=== PATIENT | female | born 1950 | race Hispanic/Latino ===

== ENCOUNTER 2018-01-22 14:30 | Inpatient (IN) | payer OTHER ==
[~2018-01-22] VITALS: Ht 149.9 cm; Wt 95.5 kg
[2018-01-22 14:43] VITALS: BP 127/70
[2018-01-22 15:00] LABS: APPEARANCE,URINE Clear (CLEAR); BILIRUBIN,URINE Negative (NEGATIVE); COLOR,URINE Yellow (YELLOW); GLUCOSE, URINE (UA) Negative (NEGATIVE); KETONES,URINE Negative (NEGATIVE); LEUKOCYTE ESTERASE ,URINE Small (NEGATIVE); NITRATE,URINE Negative (NEGATIVE); OCCULT BLOOD,URINE Negative (NEGATIVE); PROTEIN,URINE Negative (NEGATIVE)
[2018-01-22 15:10] LABS: RBC,URINE None Seen /HPF (0-1)
[2018-01-22 15:11] LABS: BACTERIA,URINE Few /HPF (None Seen)
[2018-01-22] MEDS ORDERED: DICLOFENAC PO (15:23)
[2018-01-22] MEDS: CEFAZOLIN SODIUM 1 GM VIAL IVP SCH (16:15)
[2018-01-23] MEDS: CEFAZOLIN SODIUM 1 GM VIAL IVP SCH (16:15)
[2018-01-24] MEDS: CEFAZOLIN SODIUM 1 GM VIAL IVP SCH (16:15)
[2018-01-25] VITALS (19 sets, daily range): BP systolic 114–151; BP diastolic 54–89
[2018-01-25] MEDS ORDERED: GENTAMICIN SULFATE 240 MG in SODIUM CHLORIDE 0.9% 100 ML IV ONE (09:30)
[2018-01-25] MEDS ORDERED: LACTATED RINGERS 1000ML 1,000 ML IV ONE (09:37)
[2018-01-25] MEDS ORDERED: ACETAMINOPHEN EXTRA STRENGTH 500 MG TABLET ONE (11:23)
[2018-01-25] MEDS ORDERED: METOCLOPRAMIDE 10 MG/2 ML VIAL ONE ×2 (11:23→15:42)
[2018-01-25] MEDS ORDERED: CELECOXIB 200 MG CAP ONE (11:23)
[2018-01-25] MEDS ORDERED: KETOROLAC TROMETHAMINE 15MG/ML ONE (11:23)
[2018-01-25] MEDS ORDERED: OXYCODONE HCL 10 MG TAB.SR.12H PO ONE (11:24)
[2018-01-25] MEDS ORDERED: CEFAZOLIN SODIUM 1 GM VIAL ONE (11:30)
[2018-01-25] MEDS ORDERED: BUPIVACAINE/PF 0.25% 30ML VIAL IJ ONE (11:31)
[2018-01-25] MEDS ORDERED: TRANEXAMIC ACID 1000MG/10ML IV ONE (11:31)
[2018-01-25] MEDS ORDERED: EPINEPHRINE 1 MG/ML AMPULE ONE (11:31)
[2018-01-25] MEDS ORDERED: SCOPOLAMINE HYDROBROMIDE 1 EACH ADH..PATCH TD ONE (12:49)
[2018-01-25] MEDS ORDERED: HYDROMORPHONE HCL 0.5 MG/0.5 ML ML ONE (12:55)
[2018-01-25] MEDS ORDERED: ROCURONIUM BROMIDE 10MG/1ML 5ML VL ONE ×2 (12:57→13:17)
[2018-01-25] MEDS ORDERED: PROPOFOL 10 MG/ML 20ML VIAL IV ONE (12:57)
[2018-01-25] MEDS ORDERED: LIDOCAINE PF 2% 5ML ABBOJECT ONE (12:57)
[2018-01-25] MEDS ORDERED: MIDAZOLAM HCL 1 MG/ML 2ML VIAL ONE (12:59)
[2018-01-25] MEDS ORDERED: ONDANSETRON HCL 4 MG/2 ML VIAL ONE (13:35)
[2018-01-25] MEDS: CEFAZOLIN SODIUM 1 GM VIAL IVP SCH (13:38)
[2018-01-25] MEDS ORDERED: CEFAZOLIN SODIUM 1 GM VIAL IRRIG ONE (14:09)
[2018-01-25] MEDS: SODIUM CHLORIDE 0.9% 1000ML 1,000 ML IV SCH ×2 (15:17→20:18)
[2018-01-25] MEDS: ACETAMINOPHEN EXTRA STRENGTH 500 MG TABLET PO SCH ×2 (15:30→23:18)
[2018-01-25] MEDS ORDERED: ONDANSETRON HCL 4 MG/2 ML VIAL IVP PRN (15:30)
[2018-01-25] MEDS ORDERED: DiphenhydrAMINE HCL 50 MG/ML VIAL IVP PRN (15:30)
[2018-01-25] MEDS ORDERED: POTASSIUM CHLORIDE 20MEQ/100ML 100 ML IV PRN (15:30)
[2018-01-25] MEDS ORDERED: FERROUS FUMARATE 324 MG TABLET PO PRN (15:30)
[2018-01-25] MEDS ORDERED: CALCIUM CARBONATE 500 MG TABLET PO PRN (15:30)
[2018-01-25] MEDS ORDERED: POTASSIUM CHLORIDE 20 MEQ ERTAB PO PRN (15:30)
[2018-01-25] MEDS ORDERED: POTASSIUM CHLORIDE 10% ELIXIR 20 MEQ/15 ML UDCUP PO PRN (15:30)
[2018-01-25] MEDS ORDERED: LIDOCAINE HCL-MPF 1% 2ML VIAL IVP PRN (15:30)
[2018-01-25] MEDS ORDERED: TEMAZEPAM 15 MG CAPSULE PO PRN (15:30)
[2018-01-25] MEDS ORDERED: GLYCOPYRROLATE 1 MG/5 ML SYRINGE ONE (15:42)
[2018-01-25] MEDS ORDERED: NEOSTIGMINE 5MG/5ML SYR IV ONE (15:42)
[2018-01-25] MEDS ORDERED: MEPERIDINE-PF 25 MG/ML SYG ONE ×2 (16:09→16:25)
[2018-01-25] MEDS: KETOROLAC TROMETHAMINE 15MG/ML IV PRN ×2 (17:44→23:42)
[2018-01-25] MEDS: ASPIRIN 325 MG TABLET PO SCH (20:17)
[2018-01-25] MEDS: PREGABALIN 25 MG CAP PO SCH (20:17)
[2018-01-25] MEDS: CEFAZOLIN 3GM /D5W 100ML 100 ML IV SCH (20:18)
[2018-01-25] MEDS: FAMOTIDINE 20MG TAB 20 MG TAB PO SCH (20:18)
[2018-01-26 00:06] VITALS: BP 122/68
[2018-01-26] MEDS: CEFAZOLIN 3GM /D5W 100ML 100 ML IV SCH (03:45)
[2018-01-26 04:03] VITALS: BP 137/66
[2018-01-26 05:00] LABS: HEMATOCRIT 37.4 % (36-48); MEAN CORPUSCULAR HEMOGLOBIN 32.7 pg (27.0-33.0); PLATELET COUNT (AUTO) 160 K/uL (130-400); RED BLOOD CELL COUNT(AUTO) 3.89 MIL/uL (4.00-5.50); RED CELL DISTRIBUTION WIDTH 12.9 % (11.0-15.5)
[2018-01-26] MEDS: KETOROLAC TROMETHAMINE 15MG/ML IV PRN ×2 (05:09→12:14)
[2018-01-26 05:17] LABS: CREATININE 0.9 mg/dL (0.5-1.5); POTASSIUM 3.9 mmol/L (3.5-5.1)
[2018-01-26 08:02] VITALS: BP 127/64
[2018-01-26] MEDS: ACETAMINOPHEN EXTRA STRENGTH 500 MG TABLET PO SCH ×3 (08:53→23:15)
[2018-01-26] MEDS: PREGABALIN 25 MG CAP PO SCH ×2 (08:54→19:55)
[2018-01-26] MEDS: ASPIRIN 325 MG TABLET PO SCH ×2 (08:54→19:55)
[2018-01-26] MEDS: FAMOTIDINE 20MG TAB 20 MG TAB PO SCH ×2 (08:54→19:55)
[2018-01-26] MEDS: TRAMADOL HCL 50 MG TABLET PO PRN ×2 (08:56→15:33)
[2018-01-26] MEDS: POLYETHYLENE GLYCOL 3350 17 GM POWD.PACK PO SCH (09:26)
[2018-01-26] MEDS: SODIUM CHLORIDE 0.9% 1000ML 1,000 ML IV SCH (11:17)
[2018-01-26 12:23] VITALS: BP 113/56
[2018-01-26 16:42] VITALS: BP 114/54
[2018-01-26 20:05] VITALS: BP 112/60
[2018-01-27] VITALS (7 sets, daily range): BP systolic 107–146; BP diastolic 56–76
[2018-01-27] MEDS: ACETAMINOPHEN EXTRA STRENGTH 500 MG TABLET PO SCH ×3 (08:50→23:15)
[2018-01-27] MEDS: PREGABALIN 25 MG CAP PO SCH ×2 (09:00→20:52)
[2018-01-27] MEDS: POLYETHYLENE GLYCOL 3350 17 GM POWD.PACK PO SCH (09:00)
[2018-01-27] MEDS: ASPIRIN 325 MG TABLET PO SCH ×2 (09:00→20:22)
[2018-01-27] MEDS: FAMOTIDINE 20MG TAB 20 MG TAB PO SCH ×2 (09:00→20:22)
[2018-01-27] MEDS: TRAMADOL HCL 50 MG TABLET PO PRN (14:36)
[2018-01-27] MEDS: KETOROLAC TROMETHAMINE 15MG/ML IV PRN (14:38)
[2018-01-27] MEDS ORDERED: FENTANYL 25 MCG/HR PATCH TD SCH (19:30)
[2018-01-28] MEDS: KETOROLAC TROMETHAMINE 15MG/ML IV PRN (00:15)
[2018-01-28 03:15] VITALS: BP 128/67
[2018-01-28 08:03] VITALS: BP 133/68
[2018-01-28] MEDS ORDERED: ASPI-1012 PO (08:13)
[2018-01-28] MEDS ORDERED: FAMO20TA8 PO (08:13)
[2018-01-28] MEDS ORDERED: TRAM50TA4 PO (08:13)
[2018-01-28] MEDS ORDERED: HYDR-309 PO (08:13)
[2018-01-28] MEDS ORDERED: PREG25 PO (08:13)
[2018-01-28] MEDS: FAMOTIDINE 20MG TAB 20 MG TAB PO SCH (09:06)
[2018-01-28] MEDS: POLYETHYLENE GLYCOL 3350 17 GM POWD.PACK PO SCH (09:06)
[2018-01-28] MEDS: PREGABALIN 25 MG CAP PO SCH (09:07)
[2018-01-28] MEDS: ASPIRIN 325 MG TABLET PO SCH (09:07)
[2018-01-28] MEDS: ACETAMINOPHEN EXTRA STRENGTH 500 MG TABLET PO SCH (09:08)
[2018-01-28] MEDS ORDERED: BISACODYL 10 MG SUPP.RECT RC PRN (15:30)
== END 2018-01-28 11:20 | disposition home health service (06) | DRG 470 ==
LOC: EDSTATUS 14:30 → DAHIP 01-25 09:12 → 4AH 01-25 16:40
PROVIDERS: ADMIT Orthopaedic Surgery; ATTEND Orthopaedic Surgery
PROC: 0SRC0J9 Replacement of Right Knee Joint with Synthetic Substitute, Cemented, Open Approach (ICD-10-PCS; principal; 2018-01-25 13:16)
DX: M17.11 Unilateral primary osteoarthritis, right knee (principal); Z68.41 Body mass index [BMI] 40.0-44.9, adult; E66.9 Obesity, unspecified; K21.9 Gastro-esophageal reflux disease without esophagitis; G89.29 Other chronic pain; Z96.652 Presence of left artificial knee joint; Z90.49 Acquired absence of other specified parts of digestive tract; Z90.710 Acquired absence of both cervix and uterus; Z83.3 Family history of diabetes mellitus; Z80.9 Family history of malignant neoplasm, unspecified; Z88.8 Allergy status to other drugs, medicaments and biological substances
CPT/HCPCS: 36415; 73562; 80048; 81001; 85027; 88305; 88311; 96365; 96374; 96375; 97039; A4218; J0171; J0690; J1170; J1580; J1885; J2001; J2175; J2250; J2405; J2704; J2710; J2765; J3490; J7120